=== PATIENT | male | born 1995 | race Caucasian/White ===

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

== ENCOUNTER 2017-01-18 08:34 | Emergency (ER) | payer OTHER | END 2017-01-18 11:10 | disposition home or self-care (01) | LOC: D.ER 08:34 | DX: H66.42 Suppurative otitis media, unspecified, left ear (principal) ==